=== PATIENT | female | born 1970 | race African-American/Black ===

== ENCOUNTER 2019-06-19 10:45 | Inpatient (IN) | payer OTHER ==
[2019-08-31 17:23] VITALS: BMI 32.7
[2019-09-04] MEDS ORDERED: CEFAZOLIN 2 GM in DEXTROSE 5%-WATER - 100 ML IVPB ONE (07:25)
[2019-09-04] MEDS ORDERED: PHENAZOPYRIDINE HCL 100 MG TABLET (FP) PO ONE (07:25)
[2019-09-04] MEDS ORDERED: ceFAZolin SODIUM 1 GM VIAL ONE ×2 (07:28→18:11)
[2019-09-04] MEDS ORDERED: MIDAZOLAM HCL 2 MG/2 ML SINGLE DOSE VIAL ONE ×3 (07:51→08:57)
[2019-09-04] MEDS ORDERED: ROPIVACAINE HCL 0.5% 30ML VIAL ONE (07:55)
[2019-09-04] MEDS ORDERED: DEXAMETHASONE SOD PHOSPHATE/PF 10 MG/ML SDV ONE (07:55)
[2019-09-04] MEDS ORDERED: SEVOFLURANE 250 ML BTL ONE (08:22)
--- NOTE | 2019-09-04 08:34 | HP ---
History & Physical Update - History History: No Change - Physical Physical: No Change - Assessment Assessment: No Change - Plan Plan: No Change (No bustos n HP)
--- NOTE | 2019-09-04 08:50 | OP ---
Operative Note - Note: Operative Date: 09/04/19 Pre-Operative Diagnosis: Leiomyomatous Uterus. Menorrhagia. Anemia. Intramural myoma Operation: Total Abdominal Hysterectomy. Bilateral Salpingectomy Findings: 26 cm uterus Post-Operative Diagnosis: Same as Pre-op Surgeon: Maegan Law Coiler Operator: Paulo Cline Anesthesia: General Specimens Removed: uterus cervix Estimated Blood Loss (mls): 250 Operative Report Dictated: Yes
[2019-09-04] MEDS ORDERED: fentaNYL CITRATE 250 MCG/5 ML VIAL ONE ×2 (08:57→09:18)
[2019-09-04] MEDS ORDERED: ROCURONIUM BROMIDE 50 MG/5 ML SYRINGE ONE ×2 (08:58→09:18)
[2019-09-04] MEDS ORDERED: PROPOFOL 20 ML ONE ×3 (08:58→09:18)
[2019-09-04] MEDS ORDERED: LIDOCAINE HCL/PF 2% SDV 5ML VIAL ONE (09:18)
[2019-09-04] MEDS ORDERED: ceFAZolin SODIUM 1 GM VIAL IVPB ONE ×2 (09:28→09:29)
[2019-09-04] MEDS ORDERED: DEXAMETHASONE SOD PHOSPHATE 4 MG/1 ML VIAL ONE (10:16)
[2019-09-04] MEDS ORDERED: NEOSTIGMINE METHYLSULFATE 0.5 MG/ML - 10 ML MDV ONE (10:20)
[2019-09-04] MEDS ORDERED: GLYCOPYRROLATE 0.2 MG/1 ML VIAL ONE (10:21)
--- NOTE | 2019-09-04 10:59 | SURG ---
Surgery Energy Manager Note Energy Manager: Paulo Cline PA-C Date of Service: 09/04/19 Diagnosis: Leiomyomatous Uterus. Menorrhagia. Anemia. Intramural myoma Procedure: Total Abdominal Hysterectomy. Bilateral Salpingectomy I was present for the entirety of the operative procedure. For further detail, please refer to operative report. Visit type - Case Type Case Type: Scheduled - Emergency Emergency Visit: No - New patient This patient is new to me today: Yes Date on this admission: 09/04/19 - Critical Care Critical Care patient: No
[2019-09-04] MEDS ORDERED: IBUPROFEN 800 MG/8 ML IJ IVPB ONE (11:54)
[2019-09-04] MEDS: IBUPROFEN 800 MG/8 ML IJ IVPB PRN (12:00)
[2019-09-04] MEDS ORDERED: ONDANSETRON 4 MG/2 ML VIAL ONE (12:37)
[2019-09-04] MEDS: ONDANSETRON 4 MG/2 ML VIAL IVPUSH PRN (12:40)
[2019-09-04] MEDS ORDERED: DEXAMETHASONE SOD PHOSPHATE 4 MG/1 ML VIAL IVPUSH PRN (12:54)
[2019-09-04] MEDS ORDERED: PROMETHAZINE HCL 25 MG/1 ML VIAL IVPB PRN (12:54)
[2019-09-04] MEDS ORDERED: HYDROmorphone *PCA* 10MG/50ML DISP.SYRIN PCA ONE (13:14)
[2019-09-04] MEDS ORDERED: PROMETHAZINE HCL 25 MG/1 ML VIAL ONE (13:24)
[2019-09-04] MEDS: CEFAZOLIN 1 GM in DEXTROSE 5%-WATER - 50 ML IVPB SCH (16:00)
[2019-09-04 18:01] LABS: BASO % 0.4 % (0-2.0); HEMATOCRIT 25.2 % (32.4-45.2); HEMOGLOBIN 7.6 GM/dL (10.7-15.3); LYMPH % 6.5 % (8-40); MCH 22.2 pg (25.7-33.7); MCHC 30.2 g/dl (32.0-36.0); MEAN CELL VOLUME 73.6 fl (80-96); MEAN PLT VOLUME 10.2 fl (7.5-11.1); MONO % 2.3 % (3.8-10.2); NEUT % 90.8 % (42.8-82.8); PLATELET COUNT 278 K/MM3 (134-434); RBC 3.43 M/mm3 (3.60-5.2); RDW 20.5 % (11.6-15.6); WHITE BLOOD COUNT 13.3 K/mm3 (4.0-10.0)
[2019-09-04 18:29] LABS: CALCIUM 8.5 mg/dL (8.5-10.1); CREATININE 0.7 mg/dL (0.55-1.3); POTASSIUM 4.2 mmol/L (3.5-5.1)
[2019-09-04 18:46] LABS: ANISOCYTOSIS 1+; OVALOCYTE FEW
[2019-09-04] MEDS: LACTATED RINGERS SOLUTION 1,000 ML IV SCH (20:47)
[2019-09-05] MEDS ORDERED: ceFAZolin SODIUM 1 GM VIAL ONE (00:29)
[2019-09-05] MEDS ORDERED: DEXTROSE 5%-WATER - 50 ML IVPB ONE (00:29)
[2019-09-05] MEDS: CEFAZOLIN 1 GM in DEXTROSE 5%-WATER - 50 ML IVPB SCH (00:34)
[2019-09-05] MEDS: LACTATED RINGERS SOLUTION 1,000 ML IV SCH ×2 (06:14→13:50)
[2019-09-05] MEDS: HYDROmorphone *PCA* 10MG/50ML DISP.SYRIN PCA SCH ×2 (08:06→15:50)
--- NOTE | 2019-09-05 08:22 | PN ---
Progress Note (short form) - Note Progress Note: Surgery POD #1 Total Abdominal Hysterectomy. Bilateral Salpingectomy patient seen and examined at bedside with no complaints. She has not been OOB yet but states her pain is controlled with the REFINERY OPERATOR VISBREAKING. She denies and CP, SOB, N/V fever or chills. Vital Signs Temp 98.1 F 09/05/19 06:24 Pulse 77 09/05/19 06:24 Resp 20 09/05/19 06:24 BP 111/74 09/05/19 06:24 Pulse Ox 100 09/04/19 21:00 Intake & Output 09/04/19 09/04/19 09/05/19 11:59 23:59 11:59 Intake Total 2900 600 1550 Output Total 430 950 400 Balance 2470 -350 1150 Intake: IV 2900 600 1500 Lactated Ringers Solution 1500 1,000 ml @ 125 mls/hr IV ASDIR TED Rx#: [id number] IVPB 50 Oral 0 0 Output: Urine 180 950 400 Sousa 300 400 Estimated Blood Loss 250 Other: Voiding Method Indwelling Catheter CBC, BMP 09/05/19 07:35 09/04/19 17:05 PE: A&Ox3, NAD Unlabored resp on RA ABD: obese soft, ND with mild TTP throughout lower quadrants. Incision C/D/I with surrounding tissue intact and no tracking erythema or evidence of active bleeding or hematoma. Problem List - Problems (1) S/P total abdominal hysterectomy and bilateral salpingo-oophorectomy Assessment/Plan: POD #1 patient doing well with post op anemia currently asymptomatic. -Transfuse 2 units PRBC now -advance diet start clears- advance as tolerated -encourage IS -post transfusion labs -trend daily labs Evaluation and plan discussed with Dr Law Code(s): Z90.710 - ACQUIRED ABSENCE OF BOTH CERVIX AND UTERUS; Z90.722 - ACQUIRED ABSENCE OF OVARIES, BILATERAL; Z90.79 - ACQUIRED ABSENCE OF OTHER GENITAL ORGAN(S)
[2019-09-05 08:30] LABS: BASO % 0.4 % (0-2.0); HEMATOCRIT 20.1 % (32.4-45.2); LYMPH % 12.1 % (8-40); MCH 23.2 pg (25.7-33.7); MEAN CELL VOLUME 72.3 fl (80-96); MEAN PLT VOLUME 9.8 fl (7.5-11.1); MONO % 10.5 % (3.8-10.2); PLATELET COUNT 248 K/MM3 (134-434); RBC 2.77 M/mm3 (3.60-5.2); RDW 20.3 % (11.6-15.6); WHITE BLOOD COUNT 8.5 K/mm3 (4.0-10.0)
[2019-09-05] MEDS ORDERED: oxyCODONE HCL 5 MG TABLET PO PRN ×4 (08:34→15:46)
[2019-09-05 08:42] LABS: HEMOGLOBIN 6.4 GM/dL (10.7-15.3)
[2019-09-05] MEDS: ENOXAPARIN NA (PORCINE) 40 MG/0.4 ML DISP.SYRIN SQ SCH (09:06)
--- NOTE | 2019-09-05 10:03 | PN ---
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 - Current Medication List Current Medications: Active Medications Acetaminophen (Tylenol -) 650 mg PO Q4H PRN PRN Reason: FEVER Dexamethasone Sodium Phosphate (Decadron Injection -) 4 mg IVPUSH ONCE PRN PRN Reason: NAUSEA AND/OR VOMITING Enoxaparin Sodium (Lovenox -) 40 mg SQ DAILY [facility] Last Admin: 09/05/19 09:06 Dose: 40 mg Hydromorphone HCl (Hydromorphone 10 Mg/50 Ml-Ns) 10 mg PUBLIC RELATIONS STUDIES DIRECTOR PUBLIC RELATIONS STUDIES DIRECTOR [facility]; Protocol Stop: 09/11/19 12:54 Last Admin: 09/05/19 08:06 Dose: Not Given Lactated Ringer's (Lactated Ringers Solution) 1,000 mls @ 125 mls/hr IV ASDIR [facility] Last Admin: 09/05/19 06:14 Dose: 125 mls/hr Ibuprofen (Caldolor Injection -) 800 mg IVPB Q8H PRN PRN Reason: FEVER Last Admin: 09/04/19 12:00 Dose: 800 mg Ondansetron HCl (Zofran Injection) 4 mg IVPUSH Q6H PRN PRN Reason: NAUSEA AND/OR VOMITING Last Admin: 09/04/19 12:40 Dose: 4 mg Oxycodone HCl (Roxicodone -) 5 mg PO Q4H PRN PRN Reason: PAIN LEVEL 1 - 3 Oxycodone HCl (Roxicodone -) 10 mg PO Q4H PRN PRN Reason: PAIN LEVEL 4 - 6 Last Admin: 09/05/19 09:07 Dose: 10 mg Promethazine HCl (Phenergan Injection -) 12.5 mg IVPB Q6H PRN PRN Reason: NAUSEA AND/OR VOMITING Last Admin: 09/04/19 13:30 Dose: 6.25 mg - Objective Vital Signs: Vital Signs Temperature 98.1 F 09/05/19 06:24 Pulse Rate 77 09/05/19 06:24 Respiratory Rate 20 09/05/19 06:24 Blood Pressure 111/74 09/05/19 06:24 O2 Sat by Pulse Oximetry (%) 100 09/04/19 21:00 Constitutional: Yes: Well Nourished Cardiovascular: Yes: WNL Respiratory: Yes: WNL Gastrointestinal: Yes: Tenderness Labs: CBC, BMP 09/05/19 07:35 09/04/19 17:05 Assessment/Plan No adverse anesthetic comoplications, pain controlled with metal cans supervisor, advised to use metal cans supervisor to reduce pain to encourage deep coughing and pulmonary hygiene, otherwise will keep metal cans supervisor until tolerating po. dept of anesthesia will follow metal cans supervisor use.
[2019-09-05] MEDS ORDERED: [UNRECOGNIZED DRUG - OTHER] PO PRN (10:07)
[2019-09-05] MEDS ORDERED: DEXTROMETHORPHAN PO PRN (10:07)
[2019-09-05] MEDS ORDERED: GUAIFENESIN PO PRN (10:07)
[2019-09-05] MEDS: ONDANSETRON 4 MG/2 ML VIAL IVPUSH PRN (12:59)
[2019-09-05] MEDS ORDERED: PT OWN MED DRAWER 7, Y5N ONE (15:17)
--- NOTE | 2019-09-05 16:01 | PATH ---
Surgical Pathology Report Patient Name: CECI RAMÍREZ [facility]. Rec. #: [id number] /Age/Gender: 1970 (Age: 49) / F Account: [id number] Location: [address] [place] [address] Taken: 09/04/2019 Received: 09/04/2019 Reported: 09/05/2019 Physicians: Maegan Law M.D. Specimen(s) Received A: LEFT FALLOPIAN TUBE B: RIGHT FALLOPIAN TUBE C: UTERUS AND CERVIX Clinical History Leiomyoma of uterus Final Diagnosis A. FALLOPIAN TUBE, LEFT, SALPINGECTOMY: UNREMARKABLE FALLOPIAN TUBE (INCLUDING FIMBRIATED END AND FULL LUMINAL PORTION). B. FALLOPIAN TUBE, RIGHT, SALPINGECTOMY: FALLOPIAN TUBE WITH FOCAL ENDOSALPINGOSIS (INCLUDING FIMBRIATED END AND FULL LUMINAL PORTION). C. UTERUS AND CERVIX, TOTAL ABDOMINAL HYSTERECTOMY: 4557 G UTERUS. LEIOMYOMA(TA), SUBSEROSAL, SUBMUCOSAL, INTRAMURAL. PROLIFERATIVE ENDOMETRIUM. CERVICAL POLYPS. Electronically Signed Kayleigh Houston M.D. Gross Description A. Received in formalin labeled "left fallopian tube," is a 5.5 cm in length fimbriated portion of fallopian tube. The outer surface is asencio-pink and smooth. Sectioning reveals an unremarkable lumen. Licensed Club Manager sections are submitted in 2 cassettes as follows: 1-fimbria; 2-cross sections of fallopian tube. B. Received in formalin labeled "right fallopian tube," is a 4.5 cm in length fimbriated fallopian tube. The outer surface is asencio-pink and smooth. Sectioning reveals an unremarkable lumen. Licensed Club Manager sections are submitted in 2 cassettes as follows: 1-fimbria; 2-cross sections of fallopian tube. C. Received in formalin labeled "uterus and cervix," is a 4557 g uterus with an attached cervix and no attached adnexa. The specimen measures 18.5 cm from superior to inferior, 16.0 cm from anterior to posterior and 13.5 cm from left to right. The serosa is asencio-pink with abundant bulging and pedunculated subserosal nodules, measuring up to 18 cm in greatest dimension. The attached cervix measures 4.5 cm in length and averages 2.7 cm in diameter. The ectocervix is asencio-pink, smooth and glistening. The endocervix displays 2 pink-asencio, polypoid lesions averaging 2.2 cm in greatest dimension. The endometrial cavity measures 11 cm in length and 8 cm from cornu to cornu. The endometrium is asencio-red and measures up to 0.4 cm in thickness. There are multiple bulging submucosal nodules present. The myometrium displays abundant intramural nodules, measuring up to 9.0 cm in greatest dimension. The cut surface of some of the intramural nodules is focally degenerated. The remaining nodules are asencio and rubbery with whorled architecture. The remaining myometrium is asencio-pink and measures up to 10 cm in thickness. Licensed Club Manager sections are submitted in 20 cassettes as follows: 1-anterior cervix; 2-posterior cervix; 2-4-djfgvfrq cervical polyps; 5-9-ptzuyzbv endomyometrium; 5-9-uwhjsbinc endomyometrium; 5-85-vhgemfa subserosal nodule; 15-additional subserosal nodules; 16-submucosal nodules; 17- degenerated intramural nodules; 26-08-bgahlfeedm intramural nodules. 09/04/2019 [facility]2019
[2019-09-05] MEDS: IBUPROFEN 800 MG/8 ML IJ IVPB PRN (20:35)
[2019-09-05] MEDS ORDERED: [UNRECOGNIZED DRUG - MIXTURE] PO SCH (22:00)
[2019-09-06] MEDS: LACTATED RINGERS SOLUTION 1,000 ML IV SCH (04:11)
[2019-09-06] MEDS: ACETAMINOPHEN 325 MG TABLET (FP) PO PRN ×2 (06:59→12:00)
[2019-09-06 09:12] VITALS: BP 152/82; PULSE 89; TEMP 98.8
--- NOTE | 2019-09-06 09:27 | DS ---
Physical Exam: SUBJECTIVE: Patient seen and examined OBJECTIVE: Last Vital Signs Temp Pulse Resp BP Pulse Ox 98.8 F 89 20 152/82 100 09/06/19 09:00 09/06/19 09:00 09/06/19 09:00 09/06/19 09:00 09/05/19 21:00 PHYSICAL EXAM GENERAL: The patient is awake, alert, and fully oriented, in no acute distress. HEAD: Normal with no signs of trauma. NECK: Trachea midline, full range of motion, supple. LUNGS: Breath sounds equal, clear to auscultation bilaterally, no wheezes, no crackles, no accessory muscle use. HEART: Regular rate and rhythm, S1, S2 without murmur, rub or gallop. ABDOMEN: incision d/d/i. no erythema/hematoma/swelling or discharge. EXTREMITIES: 2+ pulses, warm, well-perfused, no edema. PSYCH: Normal mood, normal affect. LABS CBC 09/06/19 09:01 HOSPITAL COURSE: Date of Admission:09/04/19 Date of Discharge: 09/06/19 POD #2 s/p Total Abdominal Hysterectomy. Bilateral Salpingectomy The patient was admitted to the Med-Surg Unit after an elective Open SREE/BSO. Pain management was achieved with a narcotic and non-narcotic oral and IV regimen. POD #1, the patient passed flatus and diet was advanced. Hemoglobin and hematocrit were low so patient was transfused 2 pRBC. Repeat H/H were stable and vitals unremarkable. Julieth-operative IV ABX were administered. DVT prophylaxis was achieved with Lovenox 40mg qd, SCDs and early ambulation. The patient ambulated the halls without issue. Patient states her pain is managed well via Tylenol 650 mg x 2 tablets. Refusing narcotic scripts as she doesn't like the way it makes her feel. The discharge instructions and an oral pain management plan were reviewed with the patient. All questions answered. Above plan discussed with Dr. Law and agreed. Minutes to complete discharge: 35 Visit type - Case Type Case Type: Scheduled - New patient This patient is new to me today: Yes Date on this admission: 09/06/19
[2019-09-06 09:29] LABS: BASO % 0.7 % (0-2.0); EOS % 0.3 % (0-4.5); HEMATOCRIT 27.9 % (32.4-45.2); LYMPH % 16.7 % (8-40); MCH 24.5 pg (25.7-33.7); MCHC 32.4 g/dl (32.0-36.0); MEAN CELL VOLUME 75.5 fl (80-96); MEAN PLT VOLUME 9.3 fl (7.5-11.1); MONO % 9.5 % (3.8-10.2); NEUT % 72.8 % (42.8-82.8); PLATELET COUNT 250 K/MM3 (134-434); RBC 3.69 M/mm3 (3.60-5.2); RDW 19.4 % (11.6-15.6); WHITE BLOOD COUNT 6.3 K/mm3 (4.0-10.0)
[2019-09-06] MEDS ORDERED: FOLIC ACID 1 MG TABLET (FP) PO SCH (10:00)
[2019-09-06] MEDS ORDERED: [UNRECOGNIZED DRUG - OTHER] PO SCH (10:00)
[2019-09-06] MEDS ORDERED: FOLIC ACID PO SCH (10:00)
[2019-09-06] MEDS ORDERED: MULTIVITAMINS (DAILY MVI) TABLET (FP) PO SCH (10:00)
[2019-09-06] MEDS ORDERED: HYDROCHLOROTHIAZIDE 12.5 MG CAPSULE (FP) PO SCH (10:00)
[2019-09-06] MEDS ORDERED: CYANOCOBALAMIN PO SCH (10:00)
[2019-09-06] MEDS: ENOXAPARIN NA (PORCINE) 40 MG/0.4 ML DISP.SYRIN SQ SCH (11:02)
--- NOTE | 2019-09-06 12:39 | OP ---
DATE OF OPERATION: 09/04/2019 PREOPERATIVE DIAGNOSES: 1. Leiomyomatous uterus. 2. Menorrhagia. 3. Anemia. 4. Intramural myoma. 5. Submucosal myoma. 6. Cervical polyp. OPERATION: Total abdominal hysterectomy, bilateral salpingectomy. POSTOPERATIVE DIAGNOSES: 1. Leiomyomatous uterus. 2. Menorrhagia. 3. Anemia. 4. Intramural myoma. 5. Submucosal myoma. 6. Cervical polyp. SURGEON: Donovan Law MD KNOCKOUT MAN: Paulo PASTOR ANESTHESIA: General. PROCEDURE: Patient was taken to the operating room and placed in the supine position, prepped and draped in the usual sterile fashion. Timeout was performed in accordance with hospital regulations. wide Pfannenstiel skin incision was made. Cautery was used to cut the layers of the abdominal wall to the level of the fascia. Fascia was cut in the midline and cautery was then used to open the fascia in smiling fashion. A Porfirio was then used to bluntly and sharply dissect the rectus muscle off the fascia. Muscle was split in the midline. The peritoneal cavity was then entered and carried up and downward. Rectus muscles were then cut using cautery straight across and a large leiomyomatous utrerus was exteriorized with multiple myomas. The uterus was approximately 26, 27 cm. The round ligament was identified and LigaSure then coagulated and cut the round ligament from the left side. The uteroovarian ligament was identified and clamped and cut. Vesicouterine reflection was entered and the bladder was bluntly dissected out of the operative field. The uterine artery was identified and clamped and cut using the LigaSure. The cardinal ligament was identified and clamped and cut down to the level of the cervix on the left side. The same procedure was repeated on the right side. The round ligament was identified and clamped and cut. Vesicouterine reflection was then entered and the bladder was bluntly dissected out of the operative field on the left side. The cardinal ligament was identified and clamped and cut. The uterine artery was identified, clamped and cut. The uteroovarian ligament was identified and clamped and cut down to the level of the cervix. The vagina was then grasped and the scalpel was then used to enter the vagina. Jorgensons were then used to cut the vagina away from the cervix. Large myomatous uterus was submitted to Pathology. The vagina was then closed in a continuous stitch using 0 Vicryl suture. Hemostasis was achieved. The ureter was identified and found to be peristalsis bilaterally. Hemostasis was achieved. All packing was removed. Peritoneum was then closed using 0 Biosyn suture. The muscle was approximated in the midline, approximated and put back together using a pursestring using 1 Vicryl suture. Both muscles were reapproximated very carefully using 0 Vicryl suture. The rectus muscle was brought back together. The fascia was then closed using 0 Vicryl suture in 2 parts continuous. Subcutaneous was closed using 0 Biosyn suture and the skin was then closed using 3-0 Vicryl in subcuticular fashion. The wound was washed and dressed. The patient tolerated the procedure well. Estimated blood loss was about 250 mL. DONOVAN LAW M.D. [id number] MTDD
== END 2019-09-06 15:54 | disposition home or self-care (01) | DRG 519 ==
LOC: JSAMEDAYSX 09-04 04:50 → J6S 09-04 18:53
PROVIDERS: ADMIT Obstetrics & Gynecology; ATTEND Obstetrics & Gynecology
PROC: 0UT70ZZ Resection of Bilateral Fallopian Tubes, Open Approach (ICD-10-PCS; 2019-09-04)
PROC: 30233N1 Transfusion of Nonautologous Red Blood Cells into Peripheral Vein, Percutaneous Approach (ICD-10-PCS; 2019-09-04)
PROC: 0UT90ZZ Resection of Uterus, Open Approach (ICD-10-PCS; principal; 2019-09-04 09:00)
DX: D25.1 Intramural leiomyoma of uterus (principal); D62 Acute posthemorrhagic anemia; D25.0 Submucous leiomyoma of uterus; N92.0 Excessive and frequent menstruation with regular cycle; N84.1 Polyp of cervix uteri
CPT/HCPCS: 36415; 36430; 36511; 80048; 84703; 85025; 86850; 86870; 86900; 86901; 86902; 86922; 88302-TC; 88307-TC; 94010; 94760; P9038; P9058